=== PATIENT | female | born 1955 | race Caucasian/White ===

== ENCOUNTER 2021-11-02 06:00 | Outpatient (RCR) | payer MEDICARE, SELFPAY | END 2021-11-04 23:59 | disposition home or self-care (01) | LOC: TPT 06:00 | PROVIDERS: Referring Provider Physician Assistant; Visit Provider Physician Assistant | DX: M54.50 Low back pain, unspecified (principal) | CPT/HCPCS: 97110; 97162 ==

== ENCOUNTER 2021-11-05 06:00 | Outpatient (RCR) | payer MEDICARE, SELFPAY | END 2021-12-04 23:59 | disposition home or self-care (01) | LOC: TPT 06:00 | PROVIDERS: Referring Provider Physician Assistant; Visit Provider Physician Assistant | DX: M54.50 Low back pain, unspecified (principal) | CPT/HCPCS: 97110 ==

== ENCOUNTER 2021-11-11 07:44 | Outpatient (CLI) | payer MEDICARE, OTHER, SELFPAY ==
--- NOTE | 2021-11-11 07:51 | MM_ITS ---
WS: [id number] BILATERAL 3D TOMOSYNTHESIS DIGITAL SCREENING MAMMOGRAPHY WITH CAD CLINICAL INFORMATION: SCREENING HISTORY: Screening mammogram. No current complaints. COMPARISON: December 12, 2018 TECHNIQUE: Bilateral CC and MLO views. FINDINGS: Scattered fibroglandular densities bilaterally. A few incidental tiny punctate calcifications. No [place] picious focal mass, asymmetry, calcifications, or architectural distortion. No evidence of malignancy . MM/[place] [id number] IMPRESSION: BI-RADS: 2-Benign FOLLOW UP: 1 Year Follow-up Recommend return to annual screening mammography.
== END 2021-11-11 07:45 | disposition home or self-care (01) ==
PROVIDERS: Visit Provider Physician Assistant
DX: Z12.31 Encounter for screening mammogram for malignant neoplasm of breast (principal)
CPT/HCPCS: 77063; 77067

== ENCOUNTER 2021-12-05 06:00 | Outpatient (RCR) | payer MEDICARE, SELFPAY | END 2022-01-04 23:59 | disposition home or self-care (01) | LOC: TPT 06:00 | PROVIDERS: Referring Provider Physician Assistant; Visit Provider Physician Assistant | DX: M54.50 Low back pain, unspecified (principal) | CPT/HCPCS: 97110 ==

== ENCOUNTER 2022-02-04 07:23 | Outpatient (RCR) | payer BC, MEDICARE, SELFPAY | END 2022-03-06 23:59 | disposition home or self-care (01) | LOC: TPT 07:23 | PROVIDERS: Referring Provider Physician Assistant; Visit Provider Physician Assistant | DX: M54.50 Low back pain, unspecified (principal) | CPT/HCPCS: 97110 ==

== ENCOUNTER 2022-07-05 15:06 | Outpatient (CLI) | payer MEDICARE, BC, SELFPAY ==
--- NOTE | 2022-07-05 15:41 | MR_ITS ---
WS: [id number] MRI LUMBAR SPINE NONCONTRAST HISTORY: G95.19 NEUROGENIC CLAUDICATION COMPARISON: Lumbar spine 05/05/2022 TECHNIQUE: Sagittal and axial multisequence imaging is submitted. Straightening of the normal cervical lordosis. C5-6 osteophyte/disc complex contacting the ventral co rd. Straightening of the normal thoracic spine. Moderate LEFT curvature lumbar spine. Reactive marrow edema in a large portion of the L3 and L4 verte bral bodies. Severe degenerative disc disease and desiccation throughout the lumbar spine. There is b one upon bone at the L5-S1 disc. L4 anterolisthesis by 9.4 mm. Numerous vertebral body osteophytes. Conus terminates normally at L1. T12-L1: Mild disc bulging and facet joint arthritis. L1-L2: Diffuse asymmetric disc bulging to the LEFT. Osteophytic ridging with ligamentum flavum and fa cet arthritis. Mild bilateral foraminal stenosis. Mild central stenosis and subarticular recess narro wing. L2-L3: Moderate annular disc bulging with osteophytic ridging. Severe bilateral ligamentum flavum and facet arthritis. Severe central, bilateral subarticular recess and RIGHT foraminal stenosis. Mild LE FT foraminal stenosis. L3-L4: Asymmetric annular disc bulging with severe ligamentum flavum and facet arthritis. Central dis c protrusion contacts and deforms the ventral thecal sac. Severe central, bilateral subarticular rece ss and RIGHT foraminal stenosis. Moderate LEFT foraminal stenosis. L4-L5: Unroofing of the disc with disc bulging and severe facet joint arthritis. Ligamentum flavum hy pertrophy. Severe central and bilateral subarticular recess encroachment. Mild RIGHT and moderate to severe LEFT foraminal stenosis. There is significant nerve root contact on the traversing L5 nerve ro ots in the exiting LEFT L4 nerve root. L5-S1: Mild disc bulging. Vertebral osteophytes encroach into the foramina. Paravertebral soft tissues are normal. MR/MR lumbar spine wo con* [id number] IMPRESSION: 1. Severe degenerative lumbar scoliosis and disc disease. Resulting in multile karen stenoses as described above. Stenosis due to combination of disc, osteophyt e, ligamentum flavum and facet arthritis. 2. Grade 1 anterolisthesis of L4 by 9.4 mm. 3. Severe central, bilateral subarticular recess and RIGHT foraminal stenosis at L2-3. 4. Severe central, bilateral subarticular recess and RIGHT foraminal stenosis at L3-4. Moderate LEFT foraminal stenosis. 5. Severe central, bilateral subarticular recess and moderate to severe LEFT f oraminal stenosis at L4-5. There is significant contact on the traversing L5 ne rve roots and the exiting LEFT L4 nerve root.
== END 2022-07-05 15:07 | disposition home or self-care (01) ==
LOC: RAD 15:07
PROVIDERS: PCP Physician Assistant; Visit Provider Physician Assistant
DX: M48.062 Spinal stenosis, lumbar region with neurogenic claudication (principal); M41.86 Other forms of scoliosis, lumbar region; M51.36 Other intervertebral disc degeneration, lumbar region
CPT/HCPCS: 72148

== ENCOUNTER → 2023-01-19 09:01 | Outpatient (BNVA) | payer MEDICARE, OTHER, SELFPAY | PROVIDERS: PCP Physician Assistant; Visit Provider Internal Medicine | DX: R76.8 Other specified abnormal immunological findings in serum (principal); L29.9 Pruritus, unspecified; R79.89 Other specified abnormal findings of blood chemistry | CPT/HCPCS: 36415; 80053; 81001; 82306; 82550; 82607; 82784; 83516; 83520; 84100; 84443; 85025; 85651; 86003; 86008; 86140; 86160; 86162; 86200; 86235; 86255; 86376; 86431; 86704; 86803; 87340; 99204 ==

== ENCOUNTER 2023-02-01 07:57 | Outpatient (CLI) | payer MEDICARE, OTHER, SELFPAY ==
--- NOTE | 2023-02-01 | ECG_ITS ---
[facility] Test Date: 2023-02-01 Pat Name: Maricel Ren Department: Room: Gender: Female Permit Technician: : 1955 Requested By: Izzy Peguero Order Number: [id number] Fletcher MD: Francisco Javier Frost M.D. Interpretive Statements NAME OF STUDY: LEXISCAN SESTAMIBI STRESS TEST INDICATION: [cavanaugh, ] Procedure: At the baseline, the blood pressure was 144/106 mmHg with a heart rate of 76 bpm. The electrocardiogram showed normal sinus rhythm, left axis deviation. The Lexiscan was infused over a period of 20 seconds. A total of 0.4 mg of Lexiscan was infused. The stress phase was continued for a total of 5 minutes. Heart rate was at the end of stress phase was 96 bpm and a blood pressure of 155/98 mmHg. The EKG at the peak infusion revealed normal sinus rhythm with no significant ST-T wave changes. Sestamibi was injected 20 seconds after the Lexiscan infusion. Blood pressure at the end of recovery phase was 151/99 mmHg with a heart rate of 91 bpm. Conclusion: 1. Normal EKG response to Lexiscan infusion 2. No Lexiscan induced chest pain or cardiac arrhythmia. 3. Normal blood pressure and heart rate response. 4. Sestamibi/sestamibi perfusion scan pending; see separate report. Electronically Signed On 02-04-2023 14:37:14 CDT by Francisco Javier Frost M.D. [id number]
[2023-02-01 08:16] VITALS: BMI 32.8
--- NOTE | 2023-02-01 09:03 | NMCV_ITS ---
NM arianne perf SPECT r/s* [id number] Maricel Ren Age: 67 Gender: F : 1955 Exam Date: 02/01/2023 09:41 Ordering Phys: Izzy Ackerman Technologist: JOZEF Ayon Exam Location: [facility] Indications: SHORTNESS OF BREATH STRESS TEST Please see separate stress test report in [facility] for full findings IMAGE PROTOCOL Rest/Stress 1 Lexiscan Day Radiopharmaceutical Dose (mCi) Administration Site Administered by Rest: Tc-99m 10.8 IV JOZEF Estrella Sestamibi Stress:Tc-99m 32.4 IV JOZEF Estrella Sestamibi Rest: 01-Feb-2023 60 Discovery 630 Stress: 01-Feb-2023 30 Discovery 630 0.4mg Lexiscan. Images obtained in supine and prone position. SPECT RESULTS Technical Quality: Excellent Raw Data Analysis: Normal Image Corrections: No attenuation or motion correction applied Summed Stress Score: 1 Summed Rest Score: 0 Summed Difference Score: 1 PERFUSION FINDINGS SPECT images demonstrate homogeneous tracer distribution throughout the myocardium. FUNCTIONAL RESULTS (calculated via Gated SPECT) Stress Image LV EF (%): 67 Stress EDV (mL):73 TID: 1.13 Stress ESV (mL):24 FUNCTIONAL FINDINGS: There is normal left ventricular systolic function. IMPRESSIONS 1. Normal myocardial perfusion imaging with no evidence of ischemia 2. LV systolic function is normal Francisco Javier Frost MD (Electronically Signed) Final Date: 01 February 2023 17:27 S
--- NOTE | 2023-02-01 09:11 | PC.NURSE ---
upon intake of this pt, nurse noted a slow walk/gait with pt. when asked if she thought she could walk on a treadmill, pt stated she didn't think she could due to severe sciatic pain and numbness. nurse called provided to get a change in order for the potential of a fall when pt was on treadmill. provider gave verbal order to change exercise stress test to a chemical stress test.
[2023-02-01] MEDS: regadenoson 0.4 Mg/5 ml Syringe IVP (10:11)
[2023-02-01 10:31] VITALS: BP 151/99; PULSE 92
== END 2023-02-01 07:58 | disposition home or self-care (01) ==
LOC: CDL 07:58
PROVIDERS: PCP Physician Assistant; Visit Provider Physician Assistant
DX: R06.02 Shortness of breath (principal)
CPT/HCPCS: 36415; 78452; 93017; 96374; A9500; J2785

== ENCOUNTER → 2023-03-14 09:46 | Outpatient (BNVA) | payer MEDICARE, OTHER, SELFPAY | PROVIDERS: PCP Physician Assistant; Visit Provider Internal Medicine | DX: R76.8 Other specified abnormal immunological findings in serum (principal); L29.9 Pruritus, unspecified; Z91.018 Allergy to other foods | CPT/HCPCS: 99214 ==

== ENCOUNTER 2023-04-07 09:07 | Outpatient (RCR) | payer MEDICARE, OTHER, SELFPAY | END 2023-05-06 23:59 | disposition home or self-care (01) | LOC: SPT 09:07 | PROVIDERS: PCP Physician Assistant; Visit Provider Nurse Practitioner Family | DX: M54.16 Radiculopathy, lumbar region (principal) | CPT/HCPCS: 97110; 97161 ==

== ENCOUNTER 2023-05-07 06:00 | Outpatient (RCR) | payer MEDICARE, OTHER, SELFPAY | END 2023-05-29 23:59 | disposition home or self-care (01) | LOC: SPT 06:00 | PROVIDERS: PCP Physician Assistant; Visit Provider Nurse Practitioner Family | DX: M54.16 Radiculopathy, lumbar region (principal) | CPT/HCPCS: 97110 ==

== ENCOUNTER 2023-05-29 09:37 | Outpatient (CLI) | payer MEDICARE, OTHER, SELFPAY ==
[2023-05-29 10:43] LABS: Erythrocyte Sedimentation Rate 41 mm/hr (0-15)
[2023-05-29 10:58] LABS: C Reactive Protein 21.9 mg/L (0.0-4.9); Free T4 Free Thyroxine 1.08 ng/dL (0.82-1.77); Thyroid Stimulating Hormone 1.11 uIU/mL (0.27-4.20)
== END 2023-05-29 09:38 | disposition home or self-care (01) ==
PROVIDERS: PCP Physician Assistant; Visit Provider Internal Medicine
DX: L29.9 Pruritus, unspecified (principal); R76.8 Other specified abnormal immunological findings in serum; Z91.018 Allergy to other foods
CPT/HCPCS: 36415; 84439; 84443; 85651; 86140

== ENCOUNTER → 2023-07-12 13:17 | Outpatient (BNVA) | payer MEDICARE, OTHER, SELFPAY | PROVIDERS: PCP Physician Assistant; Visit Provider Internal Medicine | DX: Z91.018 Allergy to other foods (principal); R76.8 Other specified abnormal immunological findings in serum; E11.9 Type 2 diabetes mellitus without complications; R70.0 Elevated erythrocyte sedimentation rate | CPT/HCPCS: 36415; 73120; 80053; 83036; 85025; 85651; 86140; 99214 ==

== ENCOUNTER → 2023-08-24 08:16 | Outpatient (BNVA) | payer MEDICARE, OTHER, SELFPAY | PROVIDERS: PCP Physician Assistant; Referring Provider Physician Assistant; Visit Provider Internal Medicine | DX: E11.9 Type 2 diabetes mellitus without complications (principal); E78.2 Mixed hyperlipidemia; I10 Essential (primary) hypertension; Z91.018 Allergy to other foods; Z79.84 Long term (current) use of oral hypoglycemic drugs; Z79.85 Long-term (current) use of injectable non-insulin antidiabetic drugs | CPT/HCPCS: 36415; 80053; 80061; 82044; 83036; 84439; 84443; 86376; 99204 ==

== ENCOUNTER → 2023-12-08 09:00 | Outpatient (BNVA) | payer MEDICARE, OTHER, SELFPAY | PROVIDERS: PCP Physician Assistant; Visit Provider Internal Medicine | DX: E11.9 Type 2 diabetes mellitus without complications (principal); E78.2 Mixed hyperlipidemia; I10 Essential (primary) hypertension; B35.1 Tinea unguium; M20.40 Other hammer toe(s) (acquired), unspecified foot; Z79.85 Long-term (current) use of injectable non-insulin antidiabetic drugs | CPT/HCPCS: 99214 ==

== ENCOUNTER → 2023-12-25 15:00 | Outpatient (BNVA) | payer MEDICARE, OTHER, SELFPAY | PROVIDERS: PCP Physician Assistant; Visit Provider Podiatrist Foot & Ankle Surgery | DX: E11.69 Type 2 diabetes mellitus with other specified complication (principal); L60.3 Nail dystrophy | CPT/HCPCS: 99203 ==

== ENCOUNTER 2024-03-13 14:44 | Outpatient (CLI) | payer MEDICARE, OTHER, SELFPAY ==
--- NOTE | 2024-03-13 14:54 | MM_ITS ---
WS: [id number] BILATERAL 3D TOMOSYNTHESIS DIGITAL SCREENING MAMMOGRAPHY WITH CAD CLINICAL INFORMATION: SCREENING HISTORY: Screening mammogram. No current complaints. COMPARISON: 2021 TECHNIQUE: Bilateral CC and MLO views. FINDINGS: Scattered fibroglandular densities bilaterally. No suspicious focal mass, asymmetry, calcifications, or architectural distortion. No evidence of malignancy. Few incidental punctate calcifications. MM/[place] [id number] IMPRESSION: BI-RADS: 2-Benign FOLLOW UP: 1 Year Follow-up Recommend return to annual screening mammography.
== END 2024-03-13 14:45 | disposition home or self-care (01) ==
LOC: RAD 14:46
PROVIDERS: PCP Physician Assistant; Visit Provider Physician Assistant
DX: Z12.31 Encounter for screening mammogram for malignant neoplasm of breast (principal)
CPT/HCPCS: 77063; 77067

== ENCOUNTER → 2024-04-16 10:19 | Outpatient (BNVA) | payer MEDICARE, OTHER, SELFPAY | PROVIDERS: PCP Physician Assistant; Visit Provider Internal Medicine | DX: E11.9 Type 2 diabetes mellitus without complications (principal); E78.2 Mixed hyperlipidemia | CPT/HCPCS: 36415; 80053; 80061; 82044; 83036 ==

== ENCOUNTER 2024-05-01 11:44 | Outpatient (CLI) | payer MEDICARE, OTHER, SELFPAY ==
--- NOTE | 2024-05-01 12:30 | US_ITS ---
WS: [id number] ULTRASOUND THYROID TECHNIQUE: Ultrasound of the thyroid. CLINICAL INFORMATION: thyromegaly COMPARISON: None. FINDINGS: Thyroid: Right and left thyroid lobes are normal in size and echotexture. Right thyroid lobe: 4.2 cm x 1.1 cm x 1.3 cm Subcentimeter hypoechoic well-circumscribed RIGHT thyroid nodule in the mid thyroid measuring 7 x 4 x 8 mm Left thyroid lobe: 4.4 cm x 1.8 cm x 1.2 cm. Mostly cystic LEFT thyroid nodule measuring 1.4 x 1.5 x 0.9 cm in the mid thyroid with some internal debris/septations. Isthmus: 0.3 mm. Cervical lymphadenopathy: None. US/US thyroid [id number] IMPRESSION: Subcentimeter solid RIGHT thyroid nodule TIRADS Category 4: Moderately suspicious (total points = 4) FNA if e1.5 cm Follow if e1 cm (at 1, 2, 3, and 5 years) Slightly complex cystic LEFT thyroid nodule TIRADS Category 1: Benign (total points = 0) No FNA
== END 2024-05-01 11:45 | disposition home or self-care (01) ==
LOC: RAD 11:44
PROVIDERS: PCP Physician Assistant; Visit Provider Internal Medicine
DX: E01.0 Iodine-deficiency related diffuse (endemic) goiter (principal)
CPT/HCPCS: 76536

== ENCOUNTER 2024-10-30 09:20 | Outpatient (CLI) | payer MEDICARE, OTHER, SELFPAY ==
[2024-10-30 10:41] LABS: Estmated Average Glucose 203; Hemoglobin A1C 8.7 % (4.0-6.0)
[2024-10-30 10:49] LABS: Alanine Aminotransferase 17 U/L (0-33); Alkaline Phosphatase 161 U/L (35-105); Anion Gap 13.2 (5-19); Aspartate Amino Transferase 14 U/L (0-32); Blood Urea Nitrogen 16 mg/dL (8-23); Calcium 9.1 mg/dL (8.5-10.5); Carbon Dioxide 27 mmol/L (22-29); Chloride 100 mmol/L (98-107); Chol HDL Ratio 3.65 mg/dL (0.0-4.40); Cholesterol 157 mg/dL (0-200); Globulin 3.5 g/dL (1.3-4.6); Glomerular Filtration Rate 99.1 mL/min (90-130); Glucose 180 mg/dL (65-115); HDL Cholesterol 43 mg/dL (60-100); LDL Cholesterol Calculated 78 mg/dL (50-129); LDL HDL Ratio 1.81 RATIO (0.00-3.22); Osmolality Calculated 288 mOsm/kg (285-295); Potassium 4.2 mmol/L (3.5-5.1); Sodium 136 mmol/L (136-145); Total Bilirubin 0.2 mg/dL (0.15-1.2); Total Protein 7.5 g/dL (6.6-8.7); Triglycerides 180 mg/dL (0-150)
[2024-10-30 11:02] LABS: Creatinine Urine, Random 83 mg/dL (28-217); Microalbumin Random Urine 10 ug/dL (0-20)
[2024-10-30 11:06] LABS: Microalbum Creatinine Ratio Ur 120 mg/dL (0-20)
== END 2024-10-30 09:21 | disposition home or self-care (01) ==
LOC: LAB 09:22
PROVIDERS: PCP Physician Assistant; Visit Provider Internal Medicine
DX: E11.9 Type 2 diabetes mellitus without complications (principal); E78.2 Mixed hyperlipidemia
CPT/HCPCS: 36415; 80053; 80061; 82044; 83036

== ENCOUNTER → 2024-11-06 08:37 | Outpatient (BNVA) | payer MEDICARE, OTHER, SELFPAY | PROVIDERS: PCP Physician Assistant; Visit Provider Internal Medicine | DX: E11.9 Type 2 diabetes mellitus without complications (principal); E78.2 Mixed hyperlipidemia; I10 Essential (primary) hypertension; E01.0 Iodine-deficiency related diffuse (endemic) goiter | CPT/HCPCS: 99214 ==

== ENCOUNTER → 2025-02-05 08:34 | Outpatient (BNVA) | payer MEDICARE, OTHER, SELFPAY | PROVIDERS: PCP Physician Assistant; Visit Provider Internal Medicine | DX: E11.9 Type 2 diabetes mellitus without complications (principal); E78.2 Mixed hyperlipidemia; I10 Essential (primary) hypertension; E01.0 Iodine-deficiency related diffuse (endemic) goiter | CPT/HCPCS: 99214 ==

== ENCOUNTER 2025-02-28 07:10 | Outpatient (CLI) | payer MEDICARE, OTHER, SELFPAY ==
[2025-02-28 07:32] VITALS: BMI 35.2
--- NOTE | 2025-02-28 07:36 | ECG_ITS ---
[email or web address] Date: 2025-02-28 Pat Name: Maricel Ren Department: Room: Gender: Female Electroneurodiagnostic Technologist: : 1955 Requested By: Izzy Peguero Order Number: [id number] Chance MD: SHILA ALBRCEHT Interpretive Statements Lung unchanged pre/post procedure; Intraprocedure shortess of breath; Symptoms resoled by discharge NOTE: Please note that this is the electrocardiogram portion of the Lexiscan/Sestamibi stress test. The perfusion scan will be documented separately. DATA: Baseline heart rate was 73 beats per minute. Baseline blood pressure was 134/63 millimeters of mercury. Target heart rate was 151. Maximum heart rate achieved was 98. which was 64 % of the predicted target heart rate. Maximum blood pressure was 134/85 millimeters of mercury. The reason for ending the test was completion of the protocol. The patient did not experience any symptoms. ELECTROCARDIOGRAM: BASELINE: Sinus rhythm. Normal axis. Otherwise, no ST-T changes suggestive of ischemia noted. No arrhythmia noted. EXERCISE: After Lexiscan injection, no ST-T changes suggestive of ischemic noted. No arrhythmia noted. CONCLUSION: Please note due to baseline abnormality of the EKG specificity and sensitivity of the EKG portion of LexiScan MIBI stress test will be low 1. EKG not suggestive of ischemia 2. Lexiscan injection unremarkable. 3. Perfusion scan will be documented separately. Electronically Signed On 03-12-2025 20:00:42 CDT by SHILA ALBRECHT [id number] [id number]
--- NOTE | 2025-02-28 07:36 | NMCV_ITS ---
NM arianne perf SPECT r/s* [id number] Maricel Ren Age: 69 Gender: F : 1955 Exam Date: 02/28/2025 08:12 Ordering Phys: Izzy Ackerman Technologist: JOZEF Tate Exam Location: [facility] Indications: cp STRESS TEST Please see separate stress test report in [facility] for full findings IMAGE PROTOCOL Rest/Stress 1 Lexiscan Day Radiopharmaceutical Dose (mCi) Administration Site Administered by Rest: Tc-99m 10.6 IV Christin Turk, CORPORATE STATISTICAL FINANCIAL ANALYST Sestamibi Stress:Tc-99m 33 IV Christin Colliergle, CORPORATE STATISTICAL FINANCIAL ANALYST Sestamibi Rest: 28-Feb-2025 60 Discovery 630 Stress: 28-Feb-2025 30 Discovery 630 0.4mg Lexiscan. Images obtained in supine and prone position. SPECT RESULTS Technical Quality: Good Raw Data Analysis: Normal Image Corrections: No attenuation or motion correction applied Summed Stress Score: 0 Summed Rest Score: 1 Summed Difference Score: 0 PERFUSION FINDINGS SPECT images demonstrate homogeneous tracer distribution throughout the myocardium. FUNCTIONAL RESULTS (calculated via Gated SPECT) Stress Image LV EF (%): 77 Stress EDV (mL):70 TID: 0.88 Stress ESV (mL):16 FUNCTIONAL FINDINGS: There is normal left ventricular systolic function. IMPRESSIONS Myocardial perfusion imaging is normal. Drew Rutledge MD (Electronically Signed) Final Date: 01 March 2025 13:05 S
[2025-02-28] MEDS: ondansetron 2 mg/ML SDV 2 mL 4 MG IVP (08:55)
[2025-02-28 09:01] VITALS: BP 121/82; PULSE 87
== END 2025-02-28 07:11 | disposition home or self-care (01) ==
LOC: CDL 07:14
PROVIDERS: PCP Physician Assistant; Visit Provider Physician Assistant
DX: R07.9 Chest pain, unspecified (principal)
CPT/HCPCS: 36415; 78452; 93017; 96374; 96375; A9500; J2405; J2785

== ENCOUNTER 2025-03-31 16:19 | Outpatient (CLI) | payer MEDICARE, OTHER, SELFPAY ==
--- NOTE | 2025-03-31 16:30 | US_ITS ---
WS: [id number] THYROID ULTRASOUND HISTORY: thyromegaly COMPARISON: 05/01/2024 Right lobe: 1.3 cm x 1.7 cm x 4.0 cm (w x ap x l). Volume: 4.2 cm3. Normal sized gland. Anterior mid RIGHT thyroid hypoechoic nodule measuring 0.7 x 0.4 x 0.7 cm is unchanged in size. Solid nodule with minimal decreased echogenicity. No echogenic foci. Margins are smooth. Left lobe: 1.7 cm x 1.5 cm x 4.6 cm (w x ap x l). Volume: 5.5 cm3. Normal sized gland. Mixed cystic and solid nodule in the superior RIGHT thyroid towards the isthmus. Previously labeled mid thyroid. Nodule measures 1.6 x 1.1 x 1.6 cm and has slightly increased in size. There are several septations which are mildly thickened but no obvious increased vascularity. There is increased vascularity within the wall. There is some shadowing from this nodule although no definite echogenic foci identified. Isthmus: 0.4 cm. US/US thyroid [id number] IMPRESSION: 1. TI-RADS 4; moderately suspicious nodule LEFT thyroid. Slight increase in si ze since the prior examination of 05/01/2024. Due to the change in appearance an d the prominent septations and increased vascularity recommend fine-needle aspi ration by ultrasound guidance at this time. 2. TI-RADS 2; RIGHT thyroid nodule. No additional imaging follow-up necessary.
== END 2025-03-31 16:20 | disposition home or self-care (01) ==
LOC: RAD 16:20
PROVIDERS: PCP Physician Assistant; Visit Provider Internal Medicine
DX: E01.0 Iodine-deficiency related diffuse (endemic) goiter (principal)
CPT/HCPCS: 76536

== ENCOUNTER → 2025-04-16 09:20 | Outpatient (BNVA) | payer MEDICARE, OTHER, SELFPAY | PROVIDERS: PCP Physician Assistant; Visit Provider Internal Medicine | DX: E11.9 Type 2 diabetes mellitus without complications (principal) | CPT/HCPCS: 36415; 80053; 80061; 82044; 83036; 84439; 84443 ==

== ENCOUNTER 2025-05-01 12:40 | Outpatient (CLI) | payer MEDICARE, OTHER, SELFPAY ==
--- NOTE | 2025-05-01 13:00 | US_ITS ---
WS: [id number] ULTRASOUND-GUIDED LEFT THYROID NODULE FNA HISTORY: TI-RADS 4 nodule LEFT thyroid. Procedure, risks, and complications were explained to the patient. Consent has been obtained. Comparison: 03/31/2025, 05/01/2024 The skin is cleansed with ChloraPrep and anesthetized with 1% buffered lidocaine. FNA performed with 25 gauge needles. radiographic technologist is present to fix slides. US/US biopsy/FNA thyroid [id number] IMPRESSION: Uncomplicated FNA of a LEFT thyroid nodule. Final pathology results pending.
== END 2025-05-01 12:41 | disposition home or self-care (01) ==
PROVIDERS: PCP Physician Assistant; Visit Provider Internal Medicine
DX: E04.1 Nontoxic single thyroid nodule (principal); D34 Benign neoplasm of thyroid gland
CPT/HCPCS: 10005; 88173